=== PATIENT | male | born 1945 | race Caucasian/White ===

== ENCOUNTER → 2023-05-23 10:45 | Outpatient (REF) | payer MEDICARE, BC, SELFPAY | LOC: RAD 10:45 | PROVIDERS: ATTENDING PHYSICIAN Internal Medicine Critical Care Medicine | DX: Z87.891 Personal history of nicotine dependence (principal); J44.9 Chronic obstructive pulmonary disease, unspecified | CPT/HCPCS: 71271 ==

== ENCOUNTER → 2023-09-07 10:20 | Outpatient (REF) | payer MEDICARE, BC, SELFPAY | LOC: RCS 10:20 | PROVIDERS: ATTENDING PHYSICIAN Internal Medicine Cardiovascular Disease; FAMILY PHYSICIAN Family Medicine | DX: R60.0 Localized edema (principal) | CPT/HCPCS: 93306; Q9950 ==

== ENCOUNTER → 2023-11-05 10:59 | Outpatient (REF) | payer MEDICARE, BC, SELFPAY | LOC: RAD 10:59 | PROVIDERS: ATTENDING PHYSICIAN Internal Medicine; FAMILY PHYSICIAN Family Medicine; REFERRING PHYSICIAN Internal Medicine Critical Care Medicine | DX: J98.8 Other specified respiratory disorders (principal); B96.89 Other specified bacterial agents as the cause of diseases classified elsewhere | CPT/HCPCS: 71046 ==